=== PATIENT | male | born 1995 | race Caucasian/White ===

== ENCOUNTER 2024-12-09 09:07 | Emergency (ER) | payer OTHER, SELFPAY ==
[2024-12-09 09:19] VITALS: BP 139/85; PULSE 85; RESP 16; TEMP 36.4; O2SAT 100
[2024-12-09 09:31] LABS: EDSTREPNEGPOS1 Negative (Negative)
[2024-12-09] MEDS: dexAMETHasone SOD PHOS INJ 10 MG/ML 1 ML VIAL BY MOUTH (09:39)
--- NOTE | 2024-12-09 09:40 | ED_ITS ---
HPI - URI/Sore Throat General Chief Complaint: Upper Respiratory Infection Stated Complaint: Sore Throat Time Seen by Provider: 12/09/24 09:19 Source: patient and RN notes reviewed Mode of arrival: ambulatory Limitations: no limitations History of Present Illness HPI Narrative: Patient presents today with a one-week history of sore, body aches sweats chills. States symptoms have worsened over the 3 days. Denies cough, fever, nasal congestion. Been taking ibuprofen with some mild relief and currently rates his pain 6/10. Works in a pharmacy. Related Data Home Medications ?Medication ?Instructions ?Recorded ?Confirmed ?Last Taken ?Type No Home Medications 12/09/24 12/09/24 U nknown History Allergies Allergy/AdvReac Type Severity Reaction Status Date / Time No Known Allergies Allergy Verified 12/09/24 09:23 [facility] / [facility] Surgical History Surgical History (Updated 12/09/24 @ 09:41 by Johanny Stephens, [facility], ) History of appendectomy Comments At time of signature, I have reviewed and agree with nursing past medical, surgical, social and family history unless otherwise noted. Please see nursing chart for further information. There is no relevant family history pertinent to the presenting complaint Exam Narrative: GENERAL: Well-appearing, well-nourished, and in no acute distress. HEAD: Normocephalic, atraumatic. EYES: EOMI. No redness or drainage. Conjunctivae normal. ENT: Mucous membranes pink and moist. Nares clear. No rhinorrhea. TMs normal bilaterally. Throat erythematous. Tonsils 2+ with white exudate. Uvula midline. NECK: Normal AROM. Supple. No lymphadenopathy. CHEST: No respiratory distress. Clear to auscultation. HEART: Regular rate and rhythm. No murmur appreciated. EXTREMITIES: Normal range of motion. No edema. SKIN: Warm, dry, no rash. Capillary refill normal. Normal skin turgor. NEURO: No focal deficits. Alert and oriented x3. Gait steady. PSYCH: Normal affect. No signs of depression or anxiety. Course Course Level of Care: Express Care Visit Vital Signs Vital signs: Vital Signs Temperature 97.5 F L 12/09/24 09:19 Pulse Rate 85 12/09/24 09:19 Respiratory Rate 16 12/09/24 09:19 Blood Pressure 139/85 12/09/24 09:19 Pulse Oximetry 100 09/28/25 09:19 Temperature 97.5 F L 12/09/24 09:19 Pulse Rate 85 12/09/24 09:19 Respiratory Rate 16 12/09/24 09:19 Blood Pressure 139/85 12/09/24 09:19 Pulse Oximetry 100 12/09/24 09:19 Reviewed MDM - URI/Sore Throat MDM Narrative Medical decision making narrative: 29 year male patient history of sore body aches, and chills. OTC medication with mild relief. Upon exam, patient has an erythematous throat. Tonsils 2+ white exudate. Rapid strep negative. Culture pending. Patient will not be started on antibiotics at this time while culture is pending. One time dose of oral dexamethasone given to help with his discomfort. Symptoms likely viral in etiology. Discussed [id number] medication use and duration of illness. No prescription medications indicated at this time. Anticipatory guidance given. Differential Diagnosis Differential diagnosis: Likely upper respiratory infection, viral infection, pharyngitis and other (Strep throat) Lab Data Attestation: I reviewed the patient's lab results. Labs: Lab Results 12/09/24 Range/Units 09:28 POC Grp A Strep Screen Negative (Negative) Critical Care Time Critical Care Time Critical Care Time: No Discharge Plan Discharge Clinical Impression: Pharyngitis Qualifiers: Pharyngitis/tonsillitis etiology: unspecified etiology Qualified Code(s): J02.9 - Acute pharyngitis, unspecified Patient Disposition: Home Condition: Stable Instructions: Pharyngitis (ED) Additional Instructions: Your rapid strep swab was negative today at [facility]. You will be notified in a few days if the culture comes back positive for strep, and appropriate antibiotics will be called in for you at that time. Your symptoms are likely due to a viral illness, which is not treated with antibiotics. Viral symptoms can be present for up to 7-10 days. Take Tylenol or ibuprofen for fever or pain. You have been given a dose of dexamethasone to help with your discomfort. Rest and stay hydrated. Follow up with your PCP in 3-4 days if symptoms are not improving. Go to the ER immediately if you have any difficulty breathing or swallowing. Your blood pressure was elevated above 120/80 today at Urgent Care. This puts you above the threshold for follow up. Please schedule a followup visit with your personal physician as soon as possible, for further evaluation and treatment. Even blood pressure exceeding 120/80 may indicate pre-hypertension. Patient Language: Tuval[place] Prescriptions: No Action No Home Medications Follow-up/Referrals: PHYSICIAN,[employer]ICE [employer]K TEAM LEAD [Primary Care Provider, Internal Medicine] Time of Disposition: 09:39
== END 2024-12-09 09:45 | disposition home or self-care (01) ==
PROVIDERS: Emergency Provider Nurse Practitioner
DX: J02.9 Acute pharyngitis, unspecified (principal)
CPT/HCPCS: 87081; 87880; 99203; G0463; J1100